=== PATIENT | male | born 1940 | race Caucasian/White ===

== ENCOUNTER 2016-07-05 13:55 | Inpatient (IN) | payer MEDICARE, MEDICAID ==
--- NOTE | 2016-07-05 14:06 | ED Physician Chart ---
Chief Complaint/HPI - Patient Information Date Seen:: 07/05/16 Time Seen:: 14:00 Chief Complaint:: Anorexia History of Present Illness:: Onset x 2 days of Anorexia with fever; No C/P, SOB, cough, Abd. pain, N/V/D/C, chills, ALOC, LOC Allergies:: Allergies Allergy/AdvReac Type Severity Reaction Status Date / Time MDX No Known Allergies - Nka Allergy Verified 04/04/15 17:31 [No Known Allergies - Nka] Historian:: Patient, EMS, Medical Records Review:: Nurse's Note Reviewed, Old Chart Reviewed, EMS run form Reviewed, Transfer documents Reviewed Review of Systems - Review of Systems General/Constitutional: Fever, Chills, No weight loss, Weakness, No diaphoresis , No edema, No loss of appetite Skin: No skin lesions, Rash, No bruising Head: No headache, No light-headedness Eyes: No loss of vision, No pain, No diplopia ENT: No earache, Nasal drainage, No sore throat, No tinnitus Neck: No neck pain, No swelling, No thyromegaly, No stiffness, No mass noted Cardio Vascular: No chest pain, No palpitations, No PND, No orthopnea, No edema Pulmonary: No SOB, Cough, No sputum, No wheezing GI: Nausea, Vomiting, Diarrhea, No pain, No melena, No hematochezia, No constipation, No hematemesis G/U: No dysuria, No frequency, No hematuria Musculoskeletal: Bone or joint pain, No back pain, Muscle pain Endocrine: No polyuria, No polydipsia Psychiatric: Prior psych history, No depression, Anxiety, No suicidal ideation Hematopoietic: No bruising, No lymphadenopathy Allergic/Immuno: No urticaria, No angioedema Neurological: No syncope, No focal symptoms, Weakness, No paresthesia, No headache, No seizure, No dizziness, Confusion, No vertigo Past Medical History - Past Medical History Past Medical History: HTN, CVA/TIA, Dyslipidemia, Arthritis, Dementia, Cataract , Other (Dysphagia, Anemia) Family History: Heart disease, Diabetes Melitus, HTN Social History: Non Smoker, No Alcohol, No Drug Use, Care Facility Surgical History: None Psychiatricy History: Dementia Medication: Reviewed Family Medical History - Family Member Mother History Unknown: Yes Physical Exam - Physical Examination General/Constitutional: Awake, Well-developed, well-nourished, Alert, No distress, GCS 15, Non-toxic appearing, Ambulatory Head: Atraumatic Eyes: Lids, conjuctiva normal, PERRL, EOMI Skin: Nl inspection, No rash, No skin lesions, No ecchymosis, Well hydrated, No lymphadenopathy ENMT: External ears, nose nl, Nasal exam nl, Lips, teeth, gums nl Neck: Nontender, Full ROM w/o pain, No JVD, No nuchal rigidity, No bruit, No mass, No stridor Respiratory: Nl effort/Exclusion, No Wheeze/Rhonchi/Rales Other Respiratory comments:: Lungs: + Rhonchi Cardio Vascular: RRR, No murmur, gallop, rubs, NL S1 S2 GI: No tenderness/rebounding/guarding, No organomegaly, No hernia, Normal BS's, Nondistended, No mass/bruits, No McBurney tenderness : No CVA tenderness Extremities: No tenderness or effusion, Full ROM, normal strength in all extremities, No edema, Normal digits & nails Neuro/Psych: Alert/oriented, DTR's symmetric, Normal sensory exam, Normal motor strength, Judgement/insight normal, Mood normal, Normal gait, No focal deficits Misc: normal gait, Normal back, No paraspinal tenderness Labs/Radiology/EKG Results - Lab Results Results: WBC: 15.7 - Radiology Results Results: CXR: RUL Infiltrate; COPD - EKG Interpretations EKG Time:: 14:08 Rate & Rhythm: 105; [place]: LAD Comments:: LVH; non-specific st-t changes ED Septic Shock - . Is Septic Shock (SBP<90, OR Lactate>4 mmol\L) present?: No Reassessment (Disposition) - Reassessment Reassessment Condition:: Improved - Diagnosis Diagnosis:: Pneumonia; Leukocytosis; Sepsis - Aftercare/Follow up Instructions Aftercare/Follow-Up Instructions:: Counseled pt regarding lab results/diagnosis & need follow up, Counseled pt & family regarding lab results/diagnosis & need follow up - Patient Disposition Discharge/Transfer:: Acute Care w/in this hosp Accepting Physician:: Dr. Jaramillo Time Called:: 1630 Time Responded:: 16:30 Admitted to:: Telemetry Admitting Medical Physician:: Dr. Jaramillo Condition at Disposition:: Stable, Improved
[2016-07-05] MEDS ORDERED: Levofloxacin 500mg/100mL 500 MG/100 ML BAG IV ONE ×2 (14:34→16:17)
[2016-07-05 14:56] LABS: % EOSINOPHILS 0.6 % (0.0-5.0); % LYMPHOCYTES 10.5 % (20.0-50.0); % MONOCYTES 3.9 % (2.0-10.0); HEMOGLOBIN 12.1 gm/dL (12.6-17.4); MEAN CELL VOLUME 89.7 fl (80-99); MEAN CORPUSCULAR HEMOGLOBIN 30.3 pg (27.0-31.0); MEAN CORPUSCULAR HGB CONC 33.7 pg (28.0-36.0); NEUTROPHILE ABSOLUTE 13.4 Th/cmm (1.8-8.0); RED BLOOD COUNT 3.99 Mil/cmm (3.80-5.80); RED CELL DISTRIBUTION WIDTH 14.4 % (11.5-20.0)
[2016-07-05 15:06] LABS: INR 1.17 (0.5-1.4); PROTHROMBIN TIME (TEST) 12.3 SECONDS (9.5-11.5)
[2016-07-05 15:15] LABS: ALB/GLOB RATIO 0.6 (1.0-1.8); ALKALINE PHOSPHATASE 64 U/L (34-104); ANION GAP 5.4 (7.0-16.0); BILIRUBIN,TOTAL 0.4 mg/dL (0.3-1.0); BUN - UREA NITROGEN 22 mg/dL (7-25); BUN/CREATININE RATIO 31.4; CALCIUM SERUM 9.4 mg/dL (8.6-10.3); CARBON DIOXIDE 27.6 mEq/L (21.0-31.0); CHLORIDE 106 mEq/L (98-107); CREATININE - SERUM 0.7 mg/dL (0.7-1.3); GLUCOSE 141 mg/dL (70-105); SGOT 16 U/L (13-39); SGPT/ALT 12 U/L (7-52); SODIUM SERUM 135 mEq/L (136-145)
[2016-07-05 15:17] LABS: HEMATOCRIT 35.8 % (39.0-49.0); PLATELET COUNT 319 Th/cmm (150-400); WHITE BLOOD COUNT 15.7 Th/cmm (4.8-10.8)
--- NOTE | 2016-07-05 15:18 | Diagnostic Imaging Report ---
Portable chest x-ray HISTORY: Pain Exam is limited as the right apical region of the chest is obscured by the patient's overlying head. The heart size is normal. There are diffuse bilateral interstitial lung changes. Findings more pronounced throughout the right lung. The lungs appear hyperexpanded suggesting changes of COPD. IMPRESSION: 1. Changes suggesting COPD along with diffuse bilateral interstitial lung changes probably chronic. Superimposed pneumonia is difficult to exclude. Clinical correlation is needed.
--- NOTE | 2016-07-05 19:31 | Admit Criteria Form ---
Admit Criteria Forms - Admit Criteria Diagnosis: PNEUMONIA, COMMUNITY ACQUIRED Clinical Indications for Admission to Inpatient Care ( Place 'X' for any and all applicable criteria): Admission is indicated for ANY ONE of the following (1)(2)(3): [ ]I. Hypoxemia indicated by ANY ONE of the following: [ ]a) Oxygen saturation less than 90% while breathing room air [ ]b) PO2 less than 60 mm Hg (8.0 kPa) while breathing room air [ ]c) Chronic lung disease with significant deterioration from baseline oxygenation [ ]II. Appropriate diagnostic testing and treatment unavailable in outpatient or recovery facility (eg,testing or infection control measures unavailable(10) [ ]III. Moderate-risk or high-risk category patients (Pneumonia Severity Index (PSI) class IV or V, or CURB-65 score of 3 or greater). [ ]IV. Outpatient treatment failure as indicated by ANY ONE of the following(9) : [ ]a) Failure to respond to antibiotic (eg, resistant organism) [ ]b) Clinically significant adverse effects from medication (eg, vomiting) [ ]c) Complications of pneumonia (eg, empyema, bacteremia) [ ]d) Significant worsening of comorbid cond necessitating inpatient care (eg, chronic heart failure) [X]V. Intermediate-risk category patients (eg, PSI class III or CURB-65 score 2) who do not improve with initial therapy and observation. [ ]. Immunocompromised patients (eg, AIDS, chronic steroid use) at moderate or high risk based on clinical evaluation. [ ]VII. Complicated pleural effusions (eg, exudative, loculated) [ ]VIII.Hemodynamic instability [ ] IX. Altered mental status that is severe or persistent. [ ]X. Dehydration that is severe or persistent. [ ]XI. Bacteremia [ ]XII. Respiratory finding (eg. tachypnea) that do not respond to outpatient or observation care treatment Extended stay beyond goal length of stay may be needed for (20) [ ]a) Unclear diagnosis [ ]b) Pleural disease [ ]c) Severe pneumonia or treatment failure (25 [ ]d) Respiratory failure (anticipate invasive or noninvasive ventilatory support) [ ]e) Abnormal serum electrolytes (serum Na concentration less than 135 mEq/L (mmol/L) (32)(33) [ ]f) Clinically significant comorbid illness (eg, heart failure, atrial fibrillation with rapid heart rate, alcohol withdrawal, renal insufficiency)(34)(35) [ ]g) Comorbid acute exacerbation of COPD(36) [ ]h) Concomitant diagnosis of malignancy that may be associated with malnutrition, immunologic impairment, or bronchial obstruction. [ ]i) Concomitant altered mental status [ ]j) Culture-identified Gram-negative or antibiotic-resistant organism (eg, Pseudomonas, methicillin-resistant Staphylococcus aureus)(30) [ ]k) Healthcare-associated pneumonia The original [facility] content created by [employer] has been revised. The portions of the content which have been revised are identified through the use of italic text or in bold, and [facility] has neither reviewed nor approved the modified material. All other unmodified content is copyright [facility]. Please see references footnoted in the original [facility] edition 2016
[2016-07-05 23:39] VITALS: BP 98/53
[2016-07-06] MEDS ORDERED: Albuterol Nebulizer 2.5mg/3mL HHN PRN (07:29)
[2016-07-06] MEDS ORDERED: Albuterol/Ipratropium Neb 3 ML AERS HHN PRN (07:30)
[2016-07-06 08:13] LABS: % BASOPHILS 0.4 % (0.0-2.0); % EOSINOPHILS 0.2 % (0.0-5.0); % LYMPHOCYTES 16.7 % (20.0-50.0); % MONOCYTES 7.8 % (2.0-10.0); % NEUTROPHILS 74.9 % (40.0-80.0); HEMATOCRIT 37.3 % (39.0-49.0); HEMOGLOBIN 12.5 gm/dL (12.6-17.4); MEAN CELL VOLUME 89.3 fl (80-99); MEAN CORPUSCULAR HEMOGLOBIN 29.9 pg (27.0-31.0); MEAN CORPUSCULAR HGB CONC 33.4 pg (28.0-36.0); MEAN PLATELET VOLUME 7.8 fl; NEUTROPHILE ABSOLUTE 9.6 Th/cmm (1.8-8.0); RED BLOOD COUNT 4.18 Mil/cmm (3.80-5.80); RED CELL DISTRIBUTION WIDTH 14.6 % (11.5-20.0)
[2016-07-06 08:17] LABS: WHITE BLOOD COUNT 12.9 Th/cmm (4.8-10.8)
[2016-07-06 08:18] LABS: PLATELET COUNT 396 Th/cmm (150-400)
[2016-07-06 08:25] LABS: ALB/GLOB RATIO 0.5 (1.0-1.8); ALKALINE PHOSPHATASE 60 U/L (34-104); ANION GAP 4.7 (7.0-16.0); BILIRUBIN,TOTAL 0.5 mg/dL (0.3-1.0); BUN - UREA NITROGEN 20 mg/dL (7-25); BUN/CREATININE RATIO 28.6; CALCIUM SERUM 9.4 mg/dL (8.6-10.3); CARBON DIOXIDE 28.5 mEq/L (21.0-31.0); CHLORIDE 108 mEq/L (98-107); CREATININE - SERUM 0.7 mg/dL (0.7-1.3); GLUCOSE 87 mg/dL (70-105); POTASSIUM SERUM 4.2 mEq/L (3.5-5.1); SGOT 14 U/L (13-39); SGPT/ALT 11 U/L (7-52); SODIUM SERUM 137 mEq/L (136-145)
--- NOTE | 2016-07-06 08:51 | Diagnostic Imaging Report ---
Portable chest x-ray HISTORY: Pneumonia Compared with prior exam of 07/05/2016, the apical regions of the chest are obscured by the patient's overlying head. Again noted are severe bilateral interstitial lung changes particularly throughout the right lung. The overall appearance is suggestive of a chronic etiology. Superimposed pneumonia cannot be excluded. Clinical correlation is needed. IMPRESSION: 1. No significant change in the cardiopulmonary status as noted above.
[2016-07-06] MEDS: Albuterol/Ipratropium Neb 3 ML AERS HHN SCH ×5 (09:29→23:16)
--- NOTE | 2016-07-06 10:28 | Consultation ---
DATE OF CONSULTATION: 07/05/2016 REFERRING PHYSICIAN: Dr. Jaramillo. Thank you very much Dr. Jaramillo for this consultation. HISTORY OF PRESENT ILLNESS: This is a 76-year-old male, who presents with cough, congestion, loss of consciousness, and fever. The patient was admitted for further treatment and management. The patient was found to have pneumonia on the chest x-ray and leukocytosis, started IV antibiotics, nebulizer treatment, admitted for treatment and management. The patient unable to give any history, but has been admitted in the past for similar problems. PAST MEDICAL HISTORY: Dementia, weakness, and failure to thrive. SOCIAL HISTORY: [facility] resident. REVIEW OF SYSTEMS: Unable to obtain because of the patient's condition. PHYSICAL EXAMINATION: GENERAL: The patient is arousable, not in acute distress. VITAL SIGNS: Temperature is 98.6, T-max 100.4, pulse 93, respirations 16, blood pressure 98/53, saturation 97%. HEENT: Atraumatic, normocephalic. Pupils are equal and reactive to light and accommodation. Ears, nose, and throat normal. NECK: Supple. No JVD. CHEST: There is rhonchi in bases, more in the right base. HEART: Regular rate and rhythm. ABDOMEN: Soft, nontender. EXTREMITIES: No edema. Chest x-ray shows COPD changes, infiltrate on the right side. LABORATORY DATA: WBC is 15.7, hemoglobin 12.2, hematocrit 35.8, platelets is 319. Sodium is 135, potassium 4.0, BUN is 22, creatinine 0.7. Total protein is 8.6, albumin is 3.1. IMPRESSION: This is a 76-year-old male with; 1. Pneumonia. 2. Possible underlying pulmonary fibrosis and/or chronic obstructive pulmonary disease. 3. Hyperproteinemia, rule out any multiple myeloma. PLAN: 1. IV antibiotics. 2. urine and serum electrophoresis. 3. might need further testing and G-tube feeding. JOB# [id number] MTDD
[2016-07-06] MEDS: D5-0.45NS 1,000 ML IV SCH ×2 (11:14→23:53)
[2016-07-06 12:13] LABS: INR 1.14 (0.5-1.4)
[2016-07-06] MEDS: Levofloxacin 500mg/100mL 500 MG/100 ML BAG IV SCH (16:22)
[2016-07-06] MEDS: Multivitamin w/ Minerals Tab PO SCH (16:25)
[2016-07-06] MEDS: Fish Oil 1,000 MG SGL PO SCH (17:16)
[2016-07-06] MEDS: Calcium Carb/Vit D 500 mg/200 U Tab PO SCH (17:17)
--- NOTE | 2016-07-06 23:46 | History & Physical Pre-OP ---
DATE OF SERVICE: 07/06/2016 CHIEF COMPLAINT: Progressively weight loss, failure to thrive, and anorexia. HISTORY OF PRESENT ILLNESS: This is a 76-year-old gentleman who is a resident of [facility] who suffers from schizophrenia, osteoporosis, and generalized muscle weakness who per intermediate staff has been gradually loosening weight on monthly basis for roughly 2-3 months. His weight loss could not be quantified at this time, but he has been treated with Megace and Remeron with no improvement. He is currently taking liquids/protein supplements at the intermediate and given his failure to thrive, he was transferred to our ER for further management and care. Prior to transferring the patient to the ER, the patient had some labs including prealbumin, which showed a level of 3, white count of 12.8, and an x-ray suggestive per ER staff of right upper lung infiltrates. The patient has been admitted to the medical floor for further management and care. The patient is mostly nonverbal and I could not get any more history from him. PAST MEDICAL HISTORY: As noted above. PAST SURGICAL HISTORY: Unknown. FAMILY HISTORY: Unknown, but likely noncontributory to his admission. ALLERGIES: NKDA. OUTPATIENT MEDICATIONS: Calcium with vitamin D one tab b.i.d., omega-3 fish oil 1000 mg b.i.d., Megace 10 mg b.i.d., Remeron 30 mg at bedtime, and multivitamins every day. REVIEW OF SYSTEMS: Cannot be obtained given the patient's condition. LABORATORY DATA: White count 15.7, H and H 12/35. INR is 1.17. Sodium 135, BUN 22, creatinine 0.7, glucose 141, lactic acid 1.97, and calcium 9.4. LFTs were essentially within normal limits. CPK 17. Prealbumin 7. TSH 1.52. DIAGNOSTICS: Official reading shows changes suggesting COPD along with diffuse bilateral interstitial lung changes, probably chronic, superimposed pneumonia is difficult to exclude. IMPRESSION: 1. Failure to thrive with significant weight loss. 2. Anorexia. 3. Leukocytosis. 4. Pneumonia. 5. Possible history of chronic obstructive pulmonary disease. 6. History of schizophrenia. 7. History of generalized muscle weakness. PLAN: The patient has been admitted to the medical floor as noted above. He has been placed on IV fluids D5 half NS at 75 mL per hour and has been started on antibiotics, namely Levaquin and pulmonary supportive care. I have asked for a pulmonary eval as well as a GI eval for further management and care. An ST eval will also be done as well as a calorie count, and I will discuss the case with next of kin/conservator for possible PEG placement if need be. JOB# [id number] MTDD
--- NOTE | 2016-07-07 04:50 | Consultation ---
DATE OF CONSULTATION: 07/06/2016 INPATIENT GI CONSULTATION NOTE REFERRING PHYSICIAN: Dr. Jaramillo. REASON FOR CONSULTATION: Failure to thrive. HISTORY OF PRESENT ILLNESS: This is a 76-year-old male who was brought into the hospital because of failure to thrive. The patient is a poor historian and seems confused. He has not been eating for the past 2 days. No reports by staff of any abdominal pain, nausea, vomiting, diarrhea, or constipation. PAST MEDICAL HISTORY: Hypertension, stroke, TIA, hyperlipidemia, arthritis, dementia, cataract, and anemia. PAST SURGICAL HISTORY: None to abdomen recently. FAMILY HISTORY: Noncontributory. SOCIAL HISTORY: No tobacco, alcohol, or IV drug usage. ALLERGIES: None. CURRENT MEDICATIONS: Albuterol and Levaquin. REVIEW OF SYSTEMS: Unobtainable. PHYSICAL EXAMINATION: VITAL SIGNS: Temperature 96.2, breathing 17, pulse of 109, blood pressure 102/72, and satting 95%. GENERAL: In no apparent distress. EYES: Anicteric. Normal conjunctivae. HEENT: Normocephalic and atraumatic. Moist mucous membranes. NECK: Soft and supple. CHEST: Clear. No effort. CARDIOVASCULAR: Regular rate and rhythm. ABDOMEN: Soft, nontender, and nondistended. SKIN: Warm and dry. LABORATORY DATA: Show white count 12.9, hemoglobin 12.5, and platelets 396,000. INR is 1.14. LFTs within normal limits. Creatinine within normal limits. IMPRESSION: This is a 76-year-old male with failure to thrive, anorexia, likely from etiology. PLAN: 1. Consider PEG if family wishes. 2. Consider swallow evaluation. 3. Check coags. 4. Continue supportive care. Thank you for allowing me to participate. Please call me if any questions. JOB# [id number]
[2016-07-07 06:56] LABS: % BASOPHILS 0.2 % (0.0-2.0); % EOSINOPHILS 0.4 % (0.0-5.0); % LYMPHOCYTES 13.2 % (20.0-50.0); % NEUTROPHILS 78.2 % (40.0-80.0); HEMATOCRIT 33.7 % (39.0-49.0); HEMOGLOBIN 11.3 gm/dL (12.6-17.4); MEAN CELL VOLUME 88.9 fl (80-99); MEAN CORPUSCULAR HEMOGLOBIN 29.7 pg (27.0-31.0); MEAN CORPUSCULAR HGB CONC 33.4 pg (28.0-36.0); MEAN PLATELET VOLUME 7.9 fl; NEUTROPHILE ABSOLUTE 10.6 Th/cmm (1.8-8.0); PLATELET COUNT 334 Th/cmm (150-400); RED BLOOD COUNT 3.78 Mil/cmm (3.80-5.80); RED CELL DISTRIBUTION WIDTH 14.4 % (11.5-20.0)
[2016-07-07 07:16] LABS: ANION GAP 6.4 (7.0-16.0); BUN - UREA NITROGEN 16 mg/dL (7-25); BUN/CREATININE RATIO 22.9; CALCIUM SERUM 8.8 mg/dL (8.6-10.3); CARBON DIOXIDE 27.4 mEq/L (21.0-31.0); CHLORIDE 108 mEq/L (98-107); CREATININE - SERUM 0.7 mg/dL (0.7-1.3); GLUCOSE 84 mg/dL (70-105); MAGNESIUM 2.1 mg/dL (1.9-2.7); POTASSIUM SERUM 3.8 mEq/L (3.5-5.1); SODIUM SERUM 138 mEq/L (136-145)
[2016-07-07 07:27] LABS: WHITE BLOOD COUNT 13.6 Th/cmm (4.8-10.8)
[2016-07-07] MEDS: Albuterol/Ipratropium Neb 3 ML AERS HHN SCH ×5 (07:39→22:38)
[2016-07-07] MEDS: Multivitamin w/ Minerals Tab PO SCH (09:47)
[2016-07-07] MEDS: Fish Oil 1,000 MG SGL PO SCH ×2 (09:47→16:47)
[2016-07-07] MEDS: Calcium Carb/Vit D 500 mg/200 U Tab PO SCH ×2 (09:47→16:47)
[2016-07-07] MEDS: D5-0.45NS 1,000 ML IV SCH (15:47)
[2016-07-07] MEDS: Levofloxacin 500mg/100mL 500 MG/100 ML BAG IV SCH (16:46)
[2016-07-08] MEDS: Albuterol/Ipratropium Neb 3 ML AERS HHN SCH ×5 (02:23→19:37)
[2016-07-08 05:19] LABS: % BASOPHILS 0.4 % (0.0-2.0); % EOSINOPHILS 0.8 % (0.0-5.0); % LYMPHOCYTES 18.8 % (20.0-50.0); % MONOCYTES 7.9 % (2.0-10.0); % NEUTROPHILS 72.1 % (40.0-80.0); HEMOGLOBIN 9.8 gm/dL (12.6-17.4); MEAN CELL VOLUME 89.8 fl (80-99); MEAN CORPUSCULAR HEMOGLOBIN 29.8 pg (27.0-31.0); MEAN CORPUSCULAR HGB CONC 33.2 pg (28.0-36.0); MEAN PLATELET VOLUME 7.7 fl; NEUTROPHILE ABSOLUTE 7.4 Th/cmm (1.8-8.0); PLATELET COUNT 314 Th/cmm (150-400); RED CELL DISTRIBUTION WIDTH 14.2 % (11.5-20.0)
[2016-07-08 05:29] LABS: WHITE BLOOD COUNT 10.2 Th/cmm (4.8-10.8)
[2016-07-08 05:30] LABS: HEMATOCRIT 29.7 % (39.0-49.0)
[2016-07-08 05:41] LABS: ANION GAP 7.7 (7.0-16.0); BUN - UREA NITROGEN 14 mg/dL (7-25); BUN/CREATININE RATIO 23.3; CALCIUM SERUM 8.4 mg/dL (8.6-10.3); CHLORIDE 109 mEq/L (98-107); CREATININE - SERUM 0.6 mg/dL (0.7-1.3); GLUCOSE 100 mg/dL (70-105); MAGNESIUM 1.9 mg/dL (1.9-2.7); POTASSIUM SERUM 3.7 mEq/L (3.5-5.1); SODIUM SERUM 138 mEq/L (136-145)
[2016-07-08] MEDS: Fish Oil 1,000 MG SGL PO SCH ×2 (09:16→17:19)
[2016-07-08] MEDS: Multivitamin w/ Minerals Tab PO SCH (09:16)
[2016-07-08] MEDS: Calcium Carb/Vit D 500 mg/200 U Tab PO SCH ×2 (09:16→17:19)
[2016-07-08] MEDS ORDERED: VTE Chemical Prophylaxis Screen/Admission MC PRN (09:46)
[2016-07-08 10:19] LABS: A/G RATIO 0.4 (0.7-1.7); ALBUMIN 2.5 g/dL (2.9-4.4); ALPHA-1-GLOBULIN 0.4 g/dL (0.0-0.4); BETA GLOBULIN 1.3 g/dL (0.7-1.3); GAMMA GLOBULIN 2.7 g/dL (0.4-1.8); GLOBULIN, TOTAL 5.6 g/dL (2.2-3.9); M-SPIKE Not Observed g/dL (Not Observed); PROTEIN, TOTAL, SERUM 8.1 g/dL (6.0-8.5)
--- NOTE | 2016-07-08 11:25 | Diagnostic Imaging Report ---
CT scan abdomen and pelvis without intravenous contrast HISTORY: Pain Total DLP equals 251 CTDI equals 5.5 Axial sections were obtained from the xiphoid process down to the pubic symphysis. Limited sections through the lower chest demonstrate diffuse infiltrates with somewhat nodular densities (right greater than left). Etiology uncertain. Findings may be associated with inflammatory or neoplastic change. If necessary, a detailed CT scan of the chest from provide additional assessment. Minimal right pleural effusion along the pleural thickening seen in the right lower hemithorax. No definite focal lesions seen within the liver. Spleen appears normal. No definite abnormality seen in the region of the pancreas. There is hydronephrosis involving the right renal collecting system along with dilatation of the right ureter. This is associated with a markedly thickened urinary bladder wall. An approximate 7 mm calcification noted within the bladder lumen near the right ureterovesical junction. Additional calcification seen in the vicinity of the prosthetic urethra. The prostate gland is enlarged with marked encroachment on the floor of the urinary bladder. No focal lesions or hydronephrosis involving the left kidney. The remainder of the pelvis demonstrates a markedly distended stool-filled rectum. No other definite abnormal masses or abnormal fluid collections. IMPRESSION: 1. Moderate right-sided hydronephrosis along with dilatation of the right ureter. Findings are associated with a thick-walled urinary bladder associated with an approximate 7 mm intraluminal calcification near the right ureterovesical junction. 2. Enlarged prostate gland with encroachment and deformity on the floor of the urinary bladder. 3. 5 mm calcification situated in the midportion of the prostate gland. Calculus within the prosthetic urethra cannot be excluded. Additional small prosthetic calcifications are also seen. 4. Distended stool-filled rectum consistent with a fecal impaction 5. Severe bilateral pulmonary infiltrates with somewhat nodular changes. Etiology indeterminate. Inflammatory or neoplastic change cannot be excluded. There appears to be an underlying chronic component. A dedicated CT scan of the chest would provide additional detail.
--- NOTE | 2016-07-08 11:29 | Diagnostic Imaging Report ---
Portable chest x-ray HISTORY: Shortness of breath Compared to prior exam of 07/06/2016, no change in diffuse infiltrate throughout the right lung. Diffuse infiltrate noted in the left lower lobe. The heart size remains normal. IMPRESSION: 1. No change in severe bilateral infiltrates (right greater than left). Findings may be chronic. Superimposed acute pathology cannot be excluded.
--- NOTE | 2016-07-08 16:47 | Diagnostic Imaging Report ---
CT scan of the chest without intravenous contrast HISTORY: Pneumonia Total DLP equals 119 CTDI equals 3.3 Axial sections were obtained from a level above the clavicles down to level below the diaphragm. The overall heart size is normal. Evaluation of the hilar structures is limited due to the absence of intravenous contrast. There is bilateral hilar fullness. Changes may be vascular. If possible, a scan following administration of intravenous contrast would be helpful. Questionable prominent lymph nodes within the precarinal region of the mediastinum. Again, detail is limited due to the absence of intravenous contrast. There is diffuse infiltrate throughout the right lung along with cystic foci and pleural thickening consistent with chronic change. There is a somewhat reticulonodular appearance of the infiltrates. Changes more focal within the lower lobe. Findings may reflect chronic interstitial changes. Superimposed acute process including inflammatory or neoplastic cannot be definitely excluded. Similar interstitial changes noted in the left lung particularly within the left lower lobe. No free pleural fluid is seen. IMPRESSION: 1. Limited exam due to the absence of intravenous contrast 2. Severe bilateral interstitial infiltrates with a somewhat reticulonodular appearance. Additional pleural thickening seen bilaterally. Findings more focal and pronounced within the lower lobes. The overall appearance is suggestive of chronic change. Superimposed inflammatory or neoplastic process cannot be excluded. Clinical correlation is needed. 3. Bilateral hilar prominence. The findings may be vascular. If possible, a scan following administration of intravenous contrast would be helpful.
--- NOTE | 2016-07-08 21:03 | Discharge Summary ---
DATE OF DISCHARGE: 07/08/2016 ADMITTING DIAGNOSES: 1. Anorexia/poor p.o. intake. 2. Failure to thrive. 3. Leukocytosis. 4. Pneumonia. SECONDARY DIAGNOSES: Include history of intellectual disability, history of schizophrenia, history of generalized muscle weakness, and history of prostate cancer. DISCHARGE DIAGNOSES: 1. Anorexia, improved/poor p.o. intake. 2. Failure to thrive, improved. 3. Leukocytosis, resolved. 4. Bilateral Pneumonia. 5. Moderate right hydronephrosis 6. Thickened urinary bladder. 7. Enlarged prostate gland/hx of prostate cancer CONSULTANTS: [facility], Dr. Diallo. MAJOR PROCEDURES: There were no major procedures except for x-rays. Initial x-ray done on 07/05/2016 shows changes suggestive of COPD along with diffuse bilateral interstitial lung changes, and probably chronic. Superimposed pneumonia is difficult to exclude. CT abdomen and pelvis: MODERATE RIGHT HYDRONEPHROSIS ALONG WITH DILATATION OF THE RIGHT URETER WITH THICK WALLED URINARY BLADDER ASSOCIATED WITH AN APPROXIMATE 7MM INTRALUMINAL CALCIFICATION NEAR THE UV JUNCTION. ENLARGED PROSTATE GLAND WITH ENCROCHMENT AND DEFORMITY OF THE FLOOR OF THE URINARY BLADDER. 5MM CALCIFICATION IN THE MIDPOINT OF THE PROSTATE GLAND. DISTENDED STOOL FILLED RECTIM C/W FECAL IMPACTION CT lungs: SEVERE BILATERAL INTERSTITIAL INFILTRATES WITH RETICULONODULAR APPEARANCE-MORE PRONOUNCED ON THE LOWER LOBES. BILATERAL HILAR PROMINENCE. DISCHARGE MEDICATIONS: Albuterol and Atrovent q.4 hours while awake and p.r.n., calcium with vitamin D 1 tab b.i.d., fish oil 1000 mg b.i.d., Levaquin 500 mg IV every day, Megace 400 mg b.i.d., Remeron 30 mg at bedtime, multivitamins and minerals everyday, and protein supplements. BRIEF HOSPITAL COURSE: This is a 76-year-old gentleman who resides at [facility] who has been noted to have progressive weight loss over the last 3 months or so. Apparently, he has lost up to 30 pounds in the last 3 months, although this cannot be verified. He also was noted to have low-grade fevers prior to being transferred to the ER, where pertinent findings included a white count of 15.7, a BUN of 22, and an x-ray suggesting of probable COPD with superimposed pneumonia. Clinically, the patient appeared to be stable and did not look septic on admission. He has some coarse crackles initially, but was started on pulmonary supportive care and IV antibiotics with improvement of his symptoms. He was kept on his other medications as scheduled, and a GI eval was consulted for possible PEG placement. An ST eval was done and the patient was able to pass it and his appetite was noted to be stable since admission, eating up to 80% of his meals. His p.o. intake has remained stable and his vital signs have also remained within normal range. His white count has normalized to a level of 10.2 and his lungs appeared to have improved as well. CONDITION ON DISCHARGE: Stable. DISPOSITION: The patient will be discharge to [facility] under Dr. Stokes service for urology eval. Pt will be continued with current management including IV abxs and pulm toilet. JOB# [id number] MTDD
== END 2016-07-08 21:35 | disposition short-term general hospital (02) | DRG 871 ==
LOC: ER 13:55 → TELE 17:37
PROVIDERS: ADMIT Internal Medicine; ATTEND Internal Medicine
DX: A41.9 Sepsis, unspecified organism (principal); J18.9 Pneumonia, unspecified organism; E44.0 Moderate protein-calorie malnutrition; N13.30 Unspecified hydronephrosis; F03.90 Unspecified dementia, unspecified severity, without behavioral disturbance, psychotic disturbance, mood disturbance, and anxiety; J44.9 Chronic obstructive pulmonary disease, unspecified; R62.7 Adult failure to thrive; F20.9 Schizophrenia, unspecified; M19.90 Unspecified osteoarthritis, unspecified site; E78.5 Hyperlipidemia, unspecified; I10 Essential (primary) hypertension; M81.0 Age-related osteoporosis without current pathological fracture; N40.0 Benign prostatic hyperplasia without lower urinary tract symptoms; Z85.46 Personal history of malignant neoplasm of prostate; Z86.73 Personal history of transient ischemic attack (TIA), and cerebral infarction without residual deficits; Z68.25 Body mass index [BMI] 25.0-25.9, adult
CPT/HCPCS: 36415-UA; 71010-TC; 71250-TC; 80048-TC; 80053-TC; 82550-TC; 83605; 83735-TC; 84134-90; 84153-90; 84165-90; 84443-TC; 85025-TC; 85610-TC; 85730-TC; 93005; 94760; J1956; X3401; Z7610